=== PATIENT | male | born 1975 | race Caucasian/White ===

== ENCOUNTER 2023-09-15 09:35 | Emergency (ER) | payer BC, SELFPAY ==
[2023-09-15 09:39] VITALS: BP 160/133; PULSE 90; RESP 18; TEMP 36.7; O2SAT 97
--- NOTE | 2023-09-15 09:44 | XRR_ITS ---
PROCEDURE INFORMATION: Exam: XR Left Ankle Exam date and time: 09/15/2023 10:04 AM Age: 47 years old Clinical indication: Pain; Ankle; Left TECHNIQUE: Imaging protocol: Radiologic exam of the left ankle. Views: 1 or 2 views. COMPARISON: CR XR foot LT 2V [id number] 09/15/2023 10:04 AM FINDINGS: Bones/joints: Small posterior calcaneal spur. No tibiotalar joint effusion. The visualized Achilles tendon is grossly normal in morphology. No fracture, dislocation or subluxation. No periosteal reaction or supsicious bone lesion. Soft tissues: Mild soft tissue swelling about the ankle. XR/XR ankle LT 2V [id number] IMPRESSION: 1. No acute fracture is seen. 2. Mild soft tissue swelling about the ankle. 3. Small posterior calcaneal spur.
--- NOTE | 2023-09-15 09:44 | XRR_ITS ---
PROCEDURE INFORMATION: Exam: XR Left Foot Exam date and time: 09/15/2023 10:04 AM Age: 47 years old Clinical indication: Pain; Foot; Left TECHNIQUE: Imaging protocol: Radiologic exam of the left foot. Views: 1 or 2 views. COMPARISON: CR (LOW EXM, ) 09/15/2023 10:04 AM FINDINGS: Bones/joints: Small posterior calcaneal spur. No fracture, dislocation or subluxation. No periosteal reaction or supsicious bone lesion. No tibiotalar joint effusion. Soft tissues: Mild dorsal soft tissue swelling. XR/XR foot LT 2V [id number] IMPRESSION: 1. No acute fracture. 2. Mild dorsal soft tissue swelling. 3. Small posterior calcaneal spur.
[2023-09-15 09:47] VITALS: BP 160/133; PULSE 90; RESP 18; TEMP 36.7; O2SAT 97
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
[2023-09-15 10:37] VITALS: PULSE 82; RESP 16; O2SAT 96
== END 2023-09-15 10:38 | disposition home or self-care (01) ==
PROVIDERS: Emergency Provider Emergency Medicine
DX: S90.32XA Contusion of left foot, initial encounter (principal); W16.622A Jumping or diving into natural body of water striking bottom causing other injury, initial encounter
CPT/HCPCS: 73600; 73620; 99283